=== PATIENT | male | born 1950 | race African-American/Black ===

== ENCOUNTER 2017-06-21 16:16 | Emergency (ER) | payer OTHER, MEDICAID ==
[~2017-06-21] VITALS: Ht 172.7 cm; Wt 70.0 kg
[~2017-06-21 16:16] MED LIST: ASPI-1159 PO; ATOR80TA PO; CHLO25CA10 PO; FOLI-43 PO; LEVO750T21 PO; METO25TA6 PO; RIVA20TA PO; THIA100T8 PO
[2017-06-21] MEDS ORDERED: SODIUM CHLORIDE 0.9% 1,000 ML IV ONE (16:39)
[2017-06-21] MEDS ORDERED: FAMOTIDINE 20MG/2ML VIAL IV ONE (16:45)
[2017-06-21 17:14] LABS: CHLORIDE 106 mEq/L (98-107)
[2017-06-21 17:19] LABS: ETHANOL BLOOD 197 mg/dL
[2017-06-21 17:32] LABS: BASOPHILS % 0.9 % (0.0-2.0); EOSINOPHILS % 0.4 % (0.0-5.0); HEMOGLOBIN. 14.7 g/dL (14.0-18.0); LYMPHOCYTES % 27.4 % (20.0-50.0); MEAN CORPUSCULAR HEMOGLOBIN 27.8 pg (28.0-32.0); MEAN CORPUSCULAR VOLUME 83.2 fL (80.0-94.0); MEAN PLATELET VOLUME 8.6 fl (7.4-10.4); MONOCYTES % 12.7 % (2.0-8.0); NEUTROPHILS % 58.6 % (40.0-76.0); PLATELET 256 x1000/uL (130-400); RED BLOOD CELL COUNT 5.28 mill/uL (4.7-6.1)
[2017-06-21 19:58] VITALS: BP 121/78
== END 2017-06-21 20:04 | disposition home or self-care (01) ==
LOC: ER 16:31
DX: F10.20 Alcohol dependence, uncomplicated (principal); J45.909 Unspecified asthma, uncomplicated; Z88.0 Allergy status to penicillin; Z79.82 Long term (current) use of aspirin
CPT/HCPCS: 36415; 80053; 85025; 96361; 96374; 99285; G0482; J3490; J7030